=== PATIENT | female | born 1995 | race Caucasian/White ===

== ENCOUNTER → 2019-09-07 06:41 | Outpatient (CLI) | payer OTHER, SELFPAY ==
[2019-09-07 07:42] LABS: Glucose 75GTT - Fasting 94 mg/dL (70-99)
[2019-09-07 08:08] LABS: Glucose 75GTT - 30 minutes 160 mg/dL (100-160)
[2019-09-07 08:50] LABS: Glucose 75GTT - 60 minutes 113 mg/dL (100-160)
[2019-09-07 09:13] LABS: Glucose 75GTT - 120 minutes 98 mg/dL (70-140)
[2019-09-07 09:14] LABS: Insulin 75GTT - Fasting 10.7 mU/L (2.6-37.6)
[2019-09-07 09:14] LABS: Insulin 75GTT - 30 MIN 81.7 mU/L (Not Estab.)
[2019-09-07 09:15] LABS: Insulin 75GTT - 60 min 72.1 mU/L (Not Estab)
[2019-09-07 09:20] LABS: Insulin 75GTT - 120 min 52.6 mU/L (Not Estab.)
== END ==
PROVIDERS: PCP Family Medicine; Referring Provider Obstetrics & Gynecology; Visit Provider Obstetrics & Gynecology
DX: R73.09 Other abnormal glucose (principal); E28.2 Polycystic ovarian syndrome
CPT/HCPCS: 36415; 82951; 82952; 83525

== ENCOUNTER → 2019-10-01 09:05 | Outpatient (CLI) | payer OTHER, SELFPAY ==
[2019-10-01 10:14] LABS: T3 Total - Triiodothyronine 1.35 ng/mL (0.6-1.81); Vitamin D,25 Hydroxy 26.6 ng/mL
[2019-10-01 10:17] LABS: Estradiol 38.2 pg/mL; Follicle Stimulating Hormone 4.6 mIU/mL; Free T3 2.8 pg/mL (2.18-3.98); Luteinizing Hormone 5.6 mIU/mL; Prolactin 7.8 ng/mL; T4 Free Direct 1.06 ng/dL (0.76-1.46); Thyroid Stim Hormone (TSH) 1.02 uIU/mL (0.358-3.74)
[2019-10-05 12:36] LABS: 17-Hydroxyprogesterone 56 ng/dL (.)
[2019-10-06 03:37] LABS: Thyroid Peroxidase AB < 9 IU/mL (0-34)
[2019-10-06 12:20] LABS: Androstenedione 283 ng/dL (41-262); Sex Hormone-binding Globulin 31.4 nmol/L (24.6-122.0); Thyroglobulin Antibody < 1.0 IU/mL (0.0-0.9)
== END ==
PROVIDERS: PCP Family Medicine; Visit Provider Obstetrics & Gynecology
DX: E28.1 Androgen excess (principal); E28.2 Polycystic ovarian syndrome; N96 Recurrent pregnancy loss
CPT/HCPCS: 36415; 82157; 82306; 82533; 82627; 82670; 83001; 83002; 83498; 84146; 84270; 84403; 84439; 84443; 84480; 84481; 86376; 86800; 82626